=== PATIENT | male | born 1960 | race Caucasian/White ===

== ENCOUNTER 2016-09-02 09:35 | Observation (INO) | payer OTHER ==
[2016-08-13 08:29] VITALS: BMI 40.0
--- NOTE | 2016-08-13 09:12 | PAT Medication Instructions ---
Service Date Aug 13, 2016. Current Home Medication List Alfuzosin Hcl (Uroxatral), 10 MG PO QAM Atorvastatin (Lipitor), 40 MG PO HS Donepezil HCl (Donepezil HCl), 10 MG PO HS Fluticasone Propionate (Nasal) (Flonase Allergy Relief), 1 SPRAY MANUEL HS Gabapentin (Neurontin), 300 MG PO QAM Gabapentin (Neurontin), 400 MG PO HS Levetiracetam (Keppra), 250 MG PO HS Lisinopril (Zestril), 5 MG PO QAM Metformin Hcl (Glucophage Ext Rel), 1,000 MG PO BID Nabumetone (Relafen), 500 MG PO BID Omeprazole (Prilosec), 20 MG PO DAILY PRN for Indigestion Sertraline (Zoloft), 100 MG PO QAM Medication Instructions For Your Scheduled Surgery - Check with surgeon for instructions: Nabumetone (Relafen), 500 MG PO BID - Hold the following medications 48 hours prior to surgery: Metformin Hcl (Glucophage Ext Rel), 1,000 MG PO BID - Hold the following medications the morning of surgery: Alfuzosin Hcl (Uroxatral), 10 MG PO QAM Lisinopril (Zestril), 5 MG PO QAM - Take the following medications the morning of surgery with a sip of water: Sertraline (Zoloft), 100 MG PO QAM Omeprazole (Prilosec), 20 MG PO DAILY PRN for Indigestion Gabapentin (Neurontin), 300 MG PO QAM - Take the following medications as scheduled the night before surgery: Donepezil HCl (Donepezil HCl), 10 MG PO HS Omeprazole (Prilosec), 20 MG PO DAILY PRN for Indigestion Levetiracetam (Keppra), 250 MG PO HS Gabapentin (Neurontin), 400 MG PO HS Fluticasone Propionate (Nasal) (Flonase Allergy Relief), 1 SPRAY MANUEL HS Atorvastatin (Lipitor), 40 MG PO HS If you have any questions please call us at [phone] or [phone] or [phone]
--- NOTE | 2016-08-13 09:39 | DIAGNOSTIC IMAGING REPORT ---
CHEST PREADMISSION(PA/LAT) CLINICAL HISTORY: Preoperative chest COMPARISON STUDY: No previous studies for comparison. FINDINGS: The cardiac and mediastinal contours are normal. There is no evidence of focal pulmonary consolidation. There is no evidence of failure. No pleural effusions are visualized.[ IMPRESSION: No active disease in the chest. Electronically signed by: Antwan Garrison M.D. 08/13/2016 9:38 AM Dictated Date/Time: 08/13/2016 9:37 AM
[2016-08-13 10:35] LABS: BASO % 0.7 %; BASO ABS # 0.06 K/uL (0-0.2); COMPLETE YES; HEMATOCRIT 44.5 % (42-52); IG% 0.1 %; LYMPH % 18.3 %; LYMPH ABS # 1.62 K/uL (1.2-3.4); MEAN CELL VOLUME 86.4 fL (80-100); MEAN CORPUSCULAR HEMOGLOBIN 27.4 pg (25-34); MEAN CORPUSCULAR HGB CONC 31.7 g/dl (32-36); MEAN PLATELET VOLUME 9.7 fL (7.4-10.4); NEUT % 67.9 %; PLATELET COUNT 270 K/uL (130-400); RED BLOOD COUNT 5.15 M/uL (4.7-6.1); WHITE BLOOD COUNT 8.84 K/uL (4.8-10.8)
[2016-08-13 10:54] LABS: URINE APPEARANCE CLEAR (CLEAR); URINE BILIRUBIN NEG (NEG); URINE COLOR YELLOW; URINE NITRITE NEG (NEG); URINE SPECIFIC GRAVITY 1.024 (1.000-1.030); UROBILINOGEN NEG (NEG)
[2016-08-13 11:10] LABS: MANUAL MICROSCOPIC REQUIRED? NO; REVIEW REQ? NO
[2016-08-13 11:52] LABS: BUN/CREATININE RATIO 13.5 (10-20); POTASSIUM 4.9 mmol/L (3.5-5.1)
[2016-08-13 11:56] LABS: CALCIUM 9.2 mg/dl (8.5-10.1)
[~2016-09-02] VITALS: Ht 175.3 cm; Wt 124.1 kg
[2016-09-02] VITALS (7 sets, daily range): BP systolic 103–121; BP diastolic 64–87; PULSE 66–84; TEMP 36.3–36.7; O2SAT 87–96; Ht 175.3 cm; Wt 124.1 kg
[~2016-09-02 09:35] MED LIST: ALFU10TA30 PO; ARC10 PO; ATOR-24 PO; FLUT0.15 NAE; GABA-113 PO; GABA1CAP5 PO; LACTATED RINGER'S 1000ML 1,000 ML IV SCH; LEVE250T PO; LISI-729 PO; METF1TAB53 PO; NABU500T3 PO; PRLSR20 PO; SERT-234 PO
[2016-09-02] MEDS ORDERED: oxybutynin PO (10:07)
[2016-09-02] MEDS ORDERED: MEPERIDINE HCL 25 MG/ML CARP IV PRN (10:15)
[2016-09-02] MEDS ORDERED: PHENYLEPHRINE 100MCG/ML 5ML SYR IV PRN (10:15)
[2016-09-02] MEDS ORDERED: ONDANSETRON INJ 2 MG/ML 2 ML VIAL IV PRN ×2 (10:15→12:45)
[2016-09-02] MEDS ORDERED: EpHEDrine SULFATE INJ 50 MG/ML AMP IV PRN (10:15)
[2016-09-02] MEDS ORDERED: LABETALOL HCL IV 5 MG/ML 20ML IV PRN (10:15)
[2016-09-02] MEDS ORDERED: FLUMAZENIL 0.1 MG/1 ML 10 ML VIAL IV PRN (10:15)
[2016-09-02] MEDS ORDERED: HYDROmorphone INJ 1 MG/ML SYR IV PRN ×2 (10:15→12:45)
[2016-09-02] MEDS ORDERED: ATROPINE SULFATE 0.1 MG/ML 5ML SYR IV PRN (10:15)
[2016-09-02] MEDS ORDERED: NALOXONE HCL 0.4 MG/1 ML VIAL/CARP IV PRN (10:15)
[2016-09-02] MEDS ORDERED: MoRPHine SULFATE 10 MG/ML CARP/VIAL IV PRN (10:15)
[2016-09-02] MEDS ORDERED: MIDAZOLAM HCL 1 MG/ML 2ML VIAL ONE (10:27)
[2016-09-02] MEDS ORDERED: FENTANYL CITRATE INJ 50 MCG/1 ML 2 ML VIAL ONE ×2 (10:27→12:05)
--- NOTE | 2016-09-02 10:31 | History & Physical Bridge Note ---
H&P Re-Evaluation Bridge Note: I have examined the patient, reviewed the History & Physical and in the interval since the performance of the History & Physical I have noted the following changes of clinical significance: No changes noted
--- NOTE | 2016-09-02 10:32 | History and Physical ---
History & Physical Date Sep 02, 2016. Chief Complaint back and leg pain History of Present Illness The patient is a 56 year old male with complaints of Additional History Hepatic Disease: No Endocrine Disorder: No Kidney Disease: No Hypertension: No Heart Disease: No Bleeding Tendencies: No Infectious Diseases: No Allergies Coded Allergies: No Known Allergies (Unverified , 09/02/16) Home Medications Scheduled Alfuzosin Hcl (Uroxatral), 10 MG PO QAM Atorvastatin (Lipitor), 40 MG PO HS Donepezil HCl (Donepezil HCl), 10 MG PO HS Fluticasone Propionate (Nasal) (Flonase Allergy Relief), 1 SPRAY MANUEL HS Gabapentin (Neurontin), 300 MG PO BID Levetiracetam (Keppra), 250 MG PO HS Lisinopril (Zestril), 5 MG PO QAM Metformin Hcl (Glucophage Ext Rel), 1,000 MG PO BID Nabumetone (Relafen), 500 MG PO DAILY Sertraline (Zoloft), 100 MG PO QAM [oxybutynin], 2 TAB PO HS Scheduled PRN Omeprazole (Prilosec), 20 MG PO DAILY PRN for Indigestion Physical Examination Skin: warm/dry, no rash Eyes: normal inspection, EOMI, sclerae normal ENT: normal ENT inspection, pharynx normal Head: normocephalic, atraumatic Neck: supple, no adenopathy, trachea midline Respiratory/Chest: lungs clear, normal breath sounds, no respiratory distress Cardiovascular: regular rate, rhythm, no edema, no murmur Abdomen / GI: normal bowel sounds, non tender Back: normal inspection Extremities: normal inspection, normal range of motion Neurologic/Psych: no motor/sensory deficits, alert, normal reflexes, oriented x 3 Diagnosis lumbar stenosis Plan of Treatment decompression coflex L2-3
[2016-09-02] MEDS ORDERED: BACITRACIN 50000 UNIT VIAL ONE (10:52)
[2016-09-02] MEDS ORDERED: CEFAZOLIN IV 2,000 MG/60 ML D5W IV ONE (10:52)
[2016-09-02] MEDS ORDERED: BUPIVACAINE/EPINEPHRINE 0.25% 1:200,000 30 ML VIAL ONE (10:52)
[2016-09-02] MEDS ORDERED: CEFAZOLIN IV 3,000 MG/65 ML D5W IV ONE (10:54)
[2016-09-02] MEDS ORDERED: HYDROmorphone INJ 2 MG/ML SYR/VIAL ONE ×2 (12:05→12:46)
[2016-09-02] MEDS ORDERED: GLYCOPYRROLATE INJ 0.2 MG/ML VIAL ONE ×2 (12:13→13:18)
[2016-09-02] MEDS ORDERED: ONDANSETRON INJ 2 MG/ML 2 ML VIAL ONE ×2 (12:13→13:18)
[2016-09-02] MEDS ORDERED: EpHEDrine SULFATE 50MG/5ML SYR ONE (12:13)
[2016-09-02] MEDS ORDERED: SUCCINYLCHOLINE CHLORIDE 20 MG/ML 10 ML VIAL IV ONE (12:13)
[2016-09-02] MEDS ORDERED: DEXAMETHASONE SOD INJ 4 MG/ML VIAL ONE (12:13)
[2016-09-02] MEDS ORDERED: PHENYLEPHRINE 100MCG/ML 5ML SYR ONE (12:13)
[2016-09-02] MEDS ORDERED: PROPOFOL IV EMULSION 10 MG/ML 20 ML VIAL IV ONE (12:13)
[2016-09-02] MEDS ORDERED: LIDOCAINE HCL 2% 2 ML VIAL (20MG/ML) ONE (12:13)
[2016-09-02] MEDS ORDERED: SUCCINYLCHOLINE 100MG/5ML SYR IV ONE (12:13)
[2016-09-02] MEDS ORDERED: ACETAMINOPHEN 500 MG TAB PO PRN (12:45)
[2016-09-02] MEDS ORDERED: DO NOT ADMINISTER FLU VACCINE PRN ×3 (12:45)
[2016-09-02] MEDS ORDERED: ACETAMINOPHEN 325 MG TAB PO PRN (12:45)
[2016-09-02] MEDS ORDERED: DO NOT ADMINISTER PNEUMOCOCCAL VACCINE PRN ×2 (12:45)
[2016-09-02] MEDS ORDERED: PANTOprazole SOD 40 MG TAB PO PRN (12:45)
[2016-09-02] MEDS ORDERED: MAGNESIUM HYDROXIDE SUSP 30 ML UDC PO PRN (12:45)
[2016-09-02] MEDS ORDERED: OXYCODONE HCL IR 5 MG TAB (IMMEDIATE RELEASE) PO PRN (12:45)
--- NOTE | 2016-09-02 12:55 | [facility] Operative Report ---
Operative Report Operative Date Sep 02, 2016. Pre-Operative Diagnosis Lumbar Stenosis Post-Operative Diagnosis same Procedure(s) Performed #1 lumbar decompression bilateral medial facetectomies L2-3 with partial discectomy. #2 placement of posterior instrumentation using Coflex [address] Cameron Castellanos Vascular Physician Surgeon(s) Tanya Yun PA-C Estimated Blood Loss 65 ml Findings Severe spinal stenosis with disc herniation Specimens none per surgeon Description of Procedure Patient was met with the family case discussed all questions were addressed. Patient was then taken to the operative suite and after undergoing successful intubation was placed prone position on the Ruy table on top of the frame. All bony prominences well-padded eyes inspected to ensure no external pressure. The lumbar spine prepped and draped in normal sterile fashion. Sharp dissection with the assistance of Bovie cautery was performed down to and exposing the L2-3 lamina. Retractor was placed. Then performed a midline decompression at L2-3 including bilateral medial facetectomies to progress severe spinal stenosis. We also addressed large disc herniation at the T3 level on the left. After complete decompression we trialed 416 mm Coflex implant. This was inserted and clamped into place.. A 15 round JERRY drain inserted. Incision then closed with 1 Vicryl in the fascia and 4-0 Monocryl for final skin closure. Please note Tanya Hamilton was present throughout the entire procedure. Involved in patient positioning exposure and could portions of the procedure and final skin closure. I attest to the content of the Intraoperative Record and any orders documented therein. Any exceptions are noted below.
[2016-09-02] MEDS ORDERED: METOPROLOL TARTRATE 1 MG/ML VIAL ONE (13:14)
[2016-09-02] MEDS ORDERED: ESMOLOL HCL 10 MG/ML 10 ML VIAL ONE (13:18)
[2016-09-02] MEDS ORDERED: NEOSTIGMINE METHYLSULFATE 1 MG/ML 10ML VIAL ONE (13:18)
[2016-09-02] MEDS ORDERED: KETOROLAC TROMETHAMINE 30 MG/ML VIAL ONE (13:18)
--- NOTE | 2016-09-02 13:33 | Anesthesiology Progress Note ---
Anesthesia Post Op Note Date & Time Sep 02, 2016 at 13:32 Vital Signs Pain Intensity: 0 Vital Signs Past 12 Hours Date Time Temp Pulse Resp B/P (MAP) Pulse Ox O2 Delivery O2 Flow Rate FiO2 09/02/16 13:11 36.1 99 14 140/84 94 Oxymask 15 09/02/16 10:10 36.7 78 18 107/87 (94) 95 Room Air Notes Mental Status: alert / awake / arousable, participated in evaluation Pt Amnestic to Procedure: Yes Nausea / Vomiting: adequately controlled Pain: adequately controlled Airway Patency, RR, SpO2: stable & adequate BP & HR: stable & adequate Hydration State: stable & adequate Anesthetic Complications: no major complications apparent The patient was a difficult intubation and required a nasal fiberoptic intubation with the Glidescope for visualization. He is awake and comfortable in the PACU.
--- NOTE | 2016-09-02 13:37 | DIAGNOSTIC IMAGING REPORT ---
INTRAOPERATIVE RADIOGRAPH CLINICAL HISTORY: L2-L3 laminectomy. Fluoroscopy time: 6 seconds. FINDINGS: A single spot fluoroscopic image of the lumbar spine is presented. A surgical device is seen involving the posterior elements in the mid lumbar region, likely at L2-L3. Fusion hardware is partially imaged more inferiorly in the lumbar spine. IMPRESSION: Intraoperative image of the lumbar spine as above. See operative report for detailed findings. Electronically signed by: Adria Doyle M.D. 09/02/2016 1:35 PM Dictated Date/Time: 09/02/2016 1:34 PM
[2016-09-02] MEDS ORDERED: HYDROmorphone INJ 2 MG/ML SYR/VIAL IV PRN (14:45)
[2016-09-02] MEDS ORDERED: IV FLUIDS COMPLETED PRN (14:45)
[2016-09-02] MEDS: SODIUM CHLORIDE 0.9% 1000ML 1,000 ML IV SCH (15:06)
[2016-09-02] MEDS ORDERED: NURSING VERBAL MED ORDER ONE (19:00)
[2016-09-02] MEDS: DEXAMETHASONE INJ 6 MG in SYRINGE 0 ML IV SCH (20:16)
[2016-09-02] MEDS: CEFAZOLIN IV 2,000 MG in DEXTROSE 5% 50ML 50 ML IV SCH (20:16)
[2016-09-02] MEDS: DOCUSATE SODIUM 100 MG CAP PO SCH (20:27)
[2016-09-02] MEDS: GABAPENTIN 300 MG CAP PO SCH (20:27)
[2016-09-02] MEDS: METFORMIN HCL 500 MG TAB PO SCH (20:32)
[2016-09-02] MEDS ORDERED: FLUTICASONE PROPIONATE NA SPR 16 GM BTL NAE SCH (21:00)
[2016-09-02] MEDS ORDERED: DONEPEZIL HCL 10 MG TAB PO SCH (21:00)
[2016-09-02] MEDS ORDERED: ATORVASTATIN 40 MG TAB PO SCH (21:00)
[2016-09-02] MEDS ORDERED: LEVETIRACETAM 250 MG TAB PO SCH (21:00)
[2016-09-03 00:15] VITALS: O2SAT 94
[2016-09-03] MEDS: SODIUM CHLORIDE 0.9% 1000ML 1,000 ML IV SCH (00:27)
[2016-09-03 03:15] VITALS: BP 106/66; PULSE 86; TEMP 36.8; O2SAT 96
[2016-09-03] MEDS: DEXAMETHASONE INJ 6 MG in SYRINGE 0 ML IV SCH ×2 (04:12→10:52)
[2016-09-03] MEDS: CEFAZOLIN IV 2,000 MG in DEXTROSE 5% 50ML 50 ML IV SCH ×2 (04:12→10:52)
[2016-09-03 06:18] VITALS: O2SAT 96
[2016-09-03 07:58] VITALS: BP 126/82; PULSE 76; TEMP 36.6; O2SAT 94
[2016-09-03 08:01] VITALS: O2SAT 94
[2016-09-03] MEDS ORDERED: RXC5 PO (08:02)
--- NOTE | 2016-09-03 08:02 | Discharge Instructions ---
Discharge Instructions Date of Service Sep 03, 2016. Admission Reason for Admission: Lumbar Spinal Stenosis Discharge Discharge Diagnosis / Problem: lumbar stenosis Discharge Goals Goal(s): Improve function Activity Recommendations Activity Limitations: per Instructions/Follow-up section . Instructions / Follow-Up Instructions / Follow-Up ACTIVITY RECOMMENDATIONS: SELF CARE INSTRUCTIONS AFTER A LAMINECTOMY 1. No prolonged sitting (less than 30 minutes for the first 3 weeks after surgery). 2. No bending, lifting more than 5 pounds, or twisting (roll like a log when turning in bed). 3. You may shower 3 days after surgery if no drainage from wound. Thoroughly dry wound. Do not soak in the tub. 4. Please walk as much as you can for exercise. Gradually increase the distance that you walk as your endurance increases. 5. You may drive in 7-10 days if you are comfortable and no longer requiring pain medications. SPECIAL CARE INSTRUCTIONS: VERY IMPORTANT TO READ AND REVIEW A. Your surgical incision has been closed with a cosmetic suture under the skin that will dissolve in about 6 weeks. In 14 days, you can use a pair of clean scissors and cut the suture that is left outside of the skin at the ends of your incision. B. Complications are uncommon, but please contact us if you have any signs or symptoms of: 1. wound infection (fever higher than 102.5 degrees F, redness, separation of wound, drainage, or increasing pain from the incision) 2. blood clots in legs (pain, swelling, redness and warmth in legs) 3. urinary tract infection (fever higher than 102.5 degrees, burning upon urination or increased frequency of urination) 4. nerve problems (inability to walk on your toes or heels, numbness, loss of bowel or bladder control) 5. any other symptoms that concern you. C. Please call the office at if you have any concerns or questions about your operation or recovery. MANAGING PAIN AFTER SPINAL SURGERY 1. Narcotic medication is intended for short-term use and will be provided for surgical pain. Surgical pain usually lasts for a period of 4-6 weeks. Narcotic medication includes Percocet, Vicodin, Darvocet, Tylenol #3 or Lortab. 2. Longer-term pain is more appropriately treated with non-narcotic medication such as Tylenol ES. 3. Muscle spasm is not appropriately treated with narcotics. Muscle relaxers such as Soma, Flexeril or Skelaxin can be used along with Tylenol ES. 4. Remember that we all live with some "aches and pains". This is not unusual or uncommon after an injury or as we get older. 5. We will provide appropriate medication within the normal guidelines of their prescribed use. We will also be very cautious and aware of potential abuse and extended duration of patients' medication needs. 6. Please allow 2-3 days to process refills. Prescriptions will not be mailed but must be picked up at the office. FOLLOW UP VISIT: Keep your scheduled follow-up appointment. Any questions, please call the office at . Current Hospital Diet Patient's current hospital diet: Diabetes Type 2 Diet Discharge Diet Recommended Diet: Regular Diet Procedures Procedures Performed: #1 lumbar decompression bilateral medial facetectomies L2-3 with partial discectomy. #2 placement of posterior instrumentation using Coflex 16 mm implant. Pending Studies Studies pending at discharge: no Medical Emergencies . Who to Call and When: Medical Emergencies: If at any time you feel your situation is an emergency, please call 911 immediately. . Non-Emergent Contact Non-Emergency issues call your: Primary Care Provider . "Provider Documentation" section prepared by Cameron Castellanos. . VTE Core Measure Inpt VTE Proph given/why not?: Dara Jacob, SCD's
--- NOTE | 2016-09-03 08:04 | Discharge Summary ---
Orthopedic Discharge Summary Admission Date/Reason Sep 02, 2016 at 12:48 Lumbar Spinal Stenosis. Discharge Date/Disposition Sep 03, 2016 Home Diagnosis Principal Diagnosis: lumbar stenosis Admission Physical Exam As per Admitting History & Physical. Hospital Course normal course, leg pain improved Discharge Instructions Please refer to the electronic Patient Visit Report (Discharge Instructions) for additional information.
[2016-09-03] MEDS ORDERED: NURSING VERBAL MED ORDER ONE (08:15)
[2016-09-03] MEDS: DOCUSATE SODIUM 100 MG CAP PO SCH (08:36)
[2016-09-03] MEDS: GABAPENTIN 300 MG CAP PO SCH (08:36)
[2016-09-03] MEDS: METFORMIN HCL 500 MG TAB PO SCH (08:36)
--- NOTE | 2016-09-03 08:56 | Anesthesiology Progress Note ---
Anesthesia Post Op Note Date & Time Sep 03, 2016 at 08:55 Vital Signs Pain Intensity: 0.0 Vital Signs Past 12 Hours Date Time Temp Pulse Resp B/P (MAP) Pulse Ox O2 Delivery O2 Flow Rate FiO2 09/03/16 08:12 Room Air 09/03/16 08:01 94 Room Air 09/03/16 07:58 36.6 76 20 126/82 (97) 94 Room Air 09/03/16 06:18 96 Room Air 09/03/16 03:15 36.8 86 18 106/66 (79) 96 Nasal Cannula 3.0 Humidified Oxygen 09/03/16 00:15 94 Nasal Cannula 3.0 Humidified Oxygen 09/02/16 23:19 93 Oxymask 2.0 09/02/16 23:15 36.7 84 18 120/68 (85) 87 Oxymask 0.0 Notes Mental Status: alert / awake / arousable, participated in evaluation Pt Amnestic to Procedure: Yes Nausea / Vomiting: adequately controlled Pain: adequately controlled Airway Patency, RR, SpO2: stable & adequate BP & HR: stable & adequate Hydration State: stable & adequate Anesthetic Complications: no major complications apparent
[2016-09-03] MEDS ORDERED: SERTRALINE HCL 100 MG TAB PO SCH (09:00)
[2016-09-03] MEDS ORDERED: ALFUZosin TAB 10 MG TAB PO SCH (09:00)
[2016-09-03] MEDS ORDERED: LISINOPRIL 5 MG TAB PO SCH (09:00)
[2016-09-03] MEDS ORDERED: NABUMETONE 500 MG TAB PO SCH (09:00)
[2016-09-03 09:09] VITALS: BP 126/82; PULSE 76; TEMP 36.6; O2SAT 94
[2016-09-04] MEDS ORDERED: BISACODYL 5 MG TABEC PO PRN (06:00)
[2016-09-04] MEDS ORDERED: BISACODYL 10 MG SUPP PR PRN (06:00)
[2016-09-05] MEDS ORDERED: POLYETHYLENE (MIRALAX) 17 GM PACK PO SCH (09:00)
== END 2016-09-03 10:59 | disposition home or self-care (01) ==
LOC: C.ACU 09:35 → C.3E 12:48 → ENRESERV 13:37
PROVIDERS: ADMIT Orthopaedic Surgery Orthopaedic Surgery of the Spine; ATTEND Orthopaedic Surgery Orthopaedic Surgery of the Spine
DX: M48.06 Spinal stenosis, lumbar region (principal)